=== PATIENT | female | born 1970 | race Caucasian/White ===

== ENCOUNTER 2021-06-07 00:07 | Emergency (ER) | payer OTHER ==
[~2021-06-07] VITALS: Ht 167.6 cm; Wt 73.5 kg
[~2021-06-07 00:07] MED LIST: IBUPROFEN600 MG PO; KEFLEX500 MG PO
== END 2021-06-07 01:30 | disposition home or self-care (01) ==
LOC: ED 00:07
DX: R10.11 Right upper quadrant pain (principal); Z88.2 Allergy status to sulfonamides; Z88.8 Allergy status to other drugs, medicaments and biological substances; Z88.5 Allergy status to narcotic agent
CPT/HCPCS: 76705; 80053; 81001; 83690; 85025; 99284-25